=== PATIENT | female | born 1990 | race Caucasian/White ===

== ENCOUNTER 2018-04-14 15:44 | Outpatient (CLI) | END 2018-04-14 19:59 | disposition home or self-care (01) ==

== ENCOUNTER 2018-04-28 16:32 | Outpatient (CLI) | END 2018-04-28 22:25 | disposition home or self-care (01) ==

== ENCOUNTER 2018-05-20 17:54 | Outpatient (CLI) | END 2018-05-21 | disposition home or self-care (01) ==

== ENCOUNTER 2018-05-23 12:35 | Inpatient (IN) | END 2018-05-27 13:30 | disposition home or self-care (01) | DRG 787 ==